=== PATIENT | male | born 1960 | race Caucasian/White ===

== ENCOUNTER 2025-02-03 20:41 | Inpatient (IN) | payer MEDICAID ==
[~2025-02-03] VITALS: Ht 177.8 cm; Wt 70.8 kg
[~2025-02-03 20:41] MED LIST: MVI, ADULT NO.1 10 ML, THIAMINE HCL 100 MG, FOLIC ACID 1 MG in SODIUM CHLORIDE 0.9% 1,0... IV ONE
[2025-02-03 20:47] VITALS: O2SAT 96
[2025-02-03] MEDS: ONDANSETRON HCL 4MG/2ML INJ IV ONE (22:11)
[2025-02-03] MEDS: KETOROLAC 15MG/ML VIAL IV ONE (22:12)
[2025-02-03] MEDS: SODIUM CHLORIDE 0.9% 1,000 ML IV ONE (22:12)
[2025-02-03 22:28] LABS: BASOPHILS % 0.2 % (0.0-2.0); EOSINOPHILS % 2.6 % (0.0-5.0); HEMATOCRIT. 40.3 % (42.0-52.0); HEMOGLOBIN. 13.6 g/dL (14.0-18.0); LYMPHOCYTES % 10.7 % (20.0-50.0); MEAN PLATELET VOLUME 7.1 fl (7.4-10.4); MONOCYTES % 8.9 % (2.0-8.0); NEUTROPHILS % 77.6 % (40.0-76.0); PLATELET 149 x1000/uL (130-400); RED BLOOD CELL COUNT 4.26 mill/uL (4.7-6.1); RED CELL DISTRIBUTION WIDTH 15.0 % (11.6-14.6)
[2025-02-03 22:31] LABS: TROPONIN I HIGH SENSITIVITY 14 ng/L (3.0-53)
[2025-02-03 22:32] LABS: CREATININE 0.9 mg/dL (0.6-1.3); UREA NITROGEN BLOOD 8 mg/dL (9-23)
[2025-02-03] MEDS ORDERED: GUAIFENESIN 200MG/10ML SUGAR FREE UDC PO PRN (23:45)
[2025-02-03] MEDS ORDERED: IPRATROPIUM/ALBUTEROL 0.5-3(2.5)MG/3ML NEB HHN PRN (23:45)
[2025-02-03] MEDS ORDERED: ONDANSETRON HCL 4MG/2ML INJ IV PRN (23:45)
[2025-02-04] MEDS: PANTOPRAZOLE SODIUM 40 MG/VIAL IV SCH (00:49)
[2025-02-04] MEDS: CHLORDIAZEPOXIDE 25MG CAPSULE PO SCH (00:50)
[2025-02-04] MEDS: POTASSIUM CHLORIDE 20MEQ TABLET SR PO SCH (00:50)
[2025-02-04 00:57] LABS: CLARITY URINE CLEAR (CLEAR); COLOR URINE YELLOW (YELLOW); GLUCOSE URINE NEGATIVE (NEGATIVE); KETONES URINE NEGATIVE (NEGATIVE); LEUKOCYTE ESTERASE URINE NEGATIVE (NEGATIVE); NITRITE URINE NEGATIVE (NEGATIVE); OCCULT BLOOD URINE NEGATIVE (NEGATIVE); PH URINE 7.0 (4.5-8.0); PROTEIN URINE NEGATIVE (NEGATIVE); SPECIFIC GRAVITY URINE 1.010 (1.005-1.030); UROBILINOGEN URINE 1.0 E.U./dL (0.2-1.0)
[2025-02-04 01:18] LABS: *AMPHETAMINES SCREEN URINE NEGATIVE (NEGATIVE); *BARBITURATES SCREEN URINE NEGATIVE (NEGATIVE); *BENZODIAZEPINES SCREEN URINE PRESUMPTIVE POSITIVE (NEGATIVE); *COCAINE SCREEN URINE NEGATIVE (NEGATIVE); METHADONE URINE SCREEN NEGATIVE (NEGATIVE); OPIATES URINE SCREEN NEGATIVE (NEGATIVE); PHENCYCLIDINE URINE SCREEN NEGATIVE (NEGATIVE)
[2025-02-04 01:19] LABS: CANNABINOID URINE SCREEN PRESUMPTIVE POSITIVE (NEGATIVE); ECSTASY MDMA SCREEN URINE NEGATIVE (NEGATIVE)
[2025-02-04 01:20] VITALS: BP 130/70; PULSE 70; RESP 18; TEMP 36.696
[2025-02-04 01:24] LABS: INR 1.0
[2025-02-04 01:29] LABS: ASPARTATE AMINOTRANSFERASE 51 IU/L (<34); BILIRUBIN DIRECT 0.1 mg/dL (<=3.0); PHOSPHORUS 3.4 mg/dL (2.5-4.9)
[2025-02-04 01:30] LABS: BILIRUBIN TOTAL 0.3 mg/dL (0.1-1.0); PROTEIN TOTAL 5.4 g/dL (6.0-8.3)
[2025-02-04 01:33] LABS: FOLIC ACID (FOLATE) SERUM 7.52 ng/mL (>5.38); VITAMIN B12 SERUM 540 pg/mL (211-911)
[2025-02-04] MEDS: MAGNESIUM 2 G PREMIX 50 ML IV NR (02:11)
[2025-02-04] MEDS: MVI, ADULT NO.1 10 ML, THIAMINE HCL 100 MG, FOLIC ACID 1 MG in SODIUM CHLORIDE 0.9% 1,0... IV ONE (02:12)
[2025-02-04] MEDS: PANTOPRAZOLE 40MG DR TABLET PO SCH (06:36)
[2025-02-04] MEDS ORDERED: POTASSIUM CHLORIDE 20MEQ TABLET SR PO PRN (07:00)
[2025-02-04 08:00] VITALS: BP 143/68; PULSE 65; RESP 16; TEMP 36.7; O2SAT 98
[2025-02-04] MEDS: ENOXAPARIN 40MG/0.4ML SYR SUBCUT SCH (08:17)
[2025-02-04 12:00] VITALS: BP 167/89; PULSE 68; RESP 16; TEMP 36.7; O2SAT 98
[2025-02-04 16:00] VITALS: BP 155/81; PULSE 61; RESP 16; TEMP 36.7; O2SAT 98
[2025-02-04] MEDS: LISINOPRIL 20MG TABLET PO SCH (18:01)
[2025-02-04 20:00] VITALS: BP 176/89; PULSE 108; RESP 18; TEMP 36.5; O2SAT 94
[2025-02-04 22:12] LABS: PLATELET 130 x1000/uL (130-400); RED BLOOD CELL COUNT 3.92 mill/uL (4.7-6.1); RED CELL DISTRIBUTION WIDTH 15.2 % (11.6-14.6)
[2025-02-04 22:25] LABS: CREATININE 1.0 mg/dL (0.6-1.3); UREA NITROGEN BLOOD 9 mg/dL (9-23)
[2025-02-04 22:26] LABS: CREATINE KINASE MB FRACTION < 0.5 ng/mL (0.5-3.6); CREATININE 1.0 mg/dL (0.6-1.3); TRIGLYCERIDE 100 mg/dL (0-150); TROPONIN I HIGH SENSITIVITY 9 ng/L (3.0-53); UREA NITROGEN BLOOD 11 mg/dL (9-23)
[2025-02-04 22:27] LABS: ASPARTATE AMINOTRANSFERASE 35 IU/L (<34); BILIRUBIN TOTAL 0.4 mg/dL (0.1-1.0); LDL CHOLESTEROL 60 mg/dL (5-100)
[2025-02-04 22:28] LABS: PHOSPHORUS 3.3 mg/dL (2.5-4.9); PROTEIN TOTAL 5.3 g/dL (6.0-8.3)
[2025-02-04 22:30] LABS: T4 FREE 1.14 ng/dL (0.89-1.76)
[2025-02-05] VITALS (7 sets, daily range): BP systolic 151–191; BP diastolic 78–100; PULSE 60–71; RESP 16–19; TEMP 36.1–37; O2SAT 95–98
[2025-02-05 06:28] LABS: CREATININE 1.0 mg/dL (0.6-1.3); UREA NITROGEN BLOOD 15 mg/dL (9-23)
[2025-02-05 06:45] LABS: BASOPHILS % 0.3 % (0.0-2.0); EOSINOPHILS % 3.7 % (0.0-5.0); HEMATOCRIT. 35.6 % (42.0-52.0); HEMOGLOBIN. 11.9 g/dL (14.0-18.0); LYMPHOCYTES % 16.0 % (20.0-50.0); MEAN PLATELET VOLUME 7.5 fl (7.4-10.4); MONOCYTES % 11.2 % (2.0-8.0); NEUTROPHILS % 68.8 % (40.0-76.0); PLATELET 127 x1000/uL (130-400); RED BLOOD CELL COUNT 3.75 mill/uL (4.7-6.1); RED CELL DISTRIBUTION WIDTH 15.0 % (11.6-14.6)
[2025-02-05] MEDS: FOLIC ACID 1MG TABLET PO SCH (08:20)
[2025-02-05] MEDS: MULTIVITAMINS,THER W-MINERALS TABLET PO SCH (08:20)
[2025-02-05] MEDS: THIAMINE HCL 100 MG/1 ML 2ML VIAL IM SCH (08:21)
[2025-02-05] MEDS: AMLODIPINE 5MG TABLET PO SCH (09:00)
[2025-02-05] MEDS: LISINOPRIL 40MG TABLET PO SCH (09:00)
[2025-02-05] MEDS: CLONIDINE 0.1MG TABLET PO PRN (10:58)
[2025-02-05] MEDS: METOPROLOL TARTRATE 5MG/5ML VIAL IV SCH (13:32)
[2025-02-05] MEDS: ACETAMINOPHEN 325MG TABLET PO PRN (18:09)
[2025-02-05] MEDS: HYDRALAZINE 20MG/ML VIAL IV SCH (18:30)
[2025-02-05] MEDS: METOPROLOL TARTRATE 25MG TABLET PO SCH (21:34)
[2025-02-06] VITALS: BP 153/89; PULSE 60; TEMP 36.5
[2025-02-06 04:01] VITALS: BP 188/88; RESP 16; TEMP 36.1; O2SAT 95
[2025-02-06 08:00] VITALS: BP 194/96; PULSE 67; RESP 18; TEMP 36.8; O2SAT 96
[2025-02-06] MEDS ORDERED: METOPROLOL SUCCINATE 50MG ER TABLET PO SCH (09:00)
[2025-02-06] MEDS ORDERED: HYDRALAZINE HCL 10MG TABLET PO SCH (09:00)
[2025-02-06] MEDS: AMLODIPINE 10MG TABLET PO SCH (09:04)
[2025-02-06] MEDS: METOPROLOL SUCCINATE 25MG ER TABLET PO SCH (09:05)
[2025-02-06] MEDS: LORAZEPAM 2MG/ML UD SYRINGE IV PRN (11:31)
[2025-02-06 12:00] VITALS: BP 159/62; PULSE 62; RESP 18; TEMP 36.7; O2SAT 95
[2025-02-06 12:19] LABS: CREATININE 0.7 mg/dL (0.6-1.3); UREA NITROGEN BLOOD 11 mg/dL (9-23)
[2025-02-06] MEDS: HYDRALAZINE HCL 25MG TABLET PO SCH (14:04)
[2025-02-06 16:00] VITALS: BP 169/92; PULSE 63; RESP 18; TEMP 36.9; O2SAT 95
[2025-02-06] MEDS ORDERED: LISI-648 MT (16:17)
[2025-02-06] MEDS ORDERED: AMLO10TA80 PO ×2 (16:19→17:04)
[2025-02-06 16:31] VITALS: BP 159/92; PULSE 62; RESP 18; TEMP 98
[2025-02-06] MEDS ORDERED: THIA100T72 PO (17:04)
[2025-02-06] MEDS ORDERED: LISI40TA21 PO (17:04)
[2025-02-06] MEDS ORDERED: FOLI-43 PO (17:04)
[2025-02-06] MEDS ORDERED: HYDR25TA PO (17:04)
[2025-02-08] MEDS ORDERED: THIAMINE HCL 100MG TABLET PO SCH (09:00)
== END 2025-02-06 18:25 | disposition home or self-care (01) | DRG 52 ==
LOC: ER 20:41 → 5WST 22:51 → EDBEDREQSVC 22:57 → EDBEDREQTM 22:57 → EDBEDREQ 22:57 → ENRESERV 23:28 → CANRESERV 23:28 → EDBEDREQSVC 02-04 00:12 → ENRESERV 02-04 00:27
PROVIDERS: ADMIT Hospitalist; ATTEND Hospitalist
DX: G92.8 Other toxic encephalopathy (principal); E87.20 Acidosis, unspecified; I10 Essential (primary) hypertension; D64.9 Anemia, unspecified; F10.229 Alcohol dependence with intoxication, unspecified; Z59.00 Homelessness unspecified; E83.42 Hypomagnesemia; Y90.6 Blood alcohol level of 120-199 mg/100 ml; Z79.899 Other long term (current) drug therapy
CPT/HCPCS: 36415; 71045; 73130; 80048; 80053; 80061; 80076; 80305; 80320; 81003; 82140; 82550; 82553; 82607; 82746; 83036; 83605; 83735; 83880; 84100; 84439; 84443; 84484; 85025; 85027; 85379; 93005; 94640; 97162; 97166; 99285; J0360; J1650; J1885; J2060; J2405; J2470; J3411; J3475; J3490; J7030; G0480